=== PATIENT | male | born 1975 | race Caucasian/White ===

== ENCOUNTER 2016-08-19 18:10 | Inpatient (IN) | payer MEDICAID ==
[~2016-08-19] VITALS: Ht 165.1 cm; Wt 72.6 kg
[2016-08-19 18:19] VITALS: BP 136/86
--- NOTE | 2016-08-19 18:26 | NUR ---
Pt taken to bed 8.
--- NOTE | 2016-08-19 18:34 | NUR ---
41/M presents to ED for evaluation of left lower quadrant pain radiating to left lower back x3 hours. Pt states he has hx of kidney stones 3 years ago. Pt states "This feels like the same thing." Patient also reports N/V. No vomiting noted while in ED. Patient is AOX4, ambulates with steady gait. Pt sitting in chair at bedside. VSS.
--- NOTE | 2016-08-19 18:37 | NUR ---
Patient being evaluated by physician at bedside.
[2016-08-19] MEDS ORDERED: KETOROLAC 30 MG/ML VIAL IVP ONE (18:40)
[2016-08-19] MEDS ORDERED: NACL 0.9% 1,000 ML IV SCH (18:40)
[2016-08-19] MEDS ORDERED: NACL 0.9% 1,000 ML IV ONE ×2 (18:40→21:00)
[2016-08-19] MEDS ORDERED: fentaNYL 0.05 MG/ML VIAL IVP ONE (18:40)
--- NOTE | 2016-08-19 19:12 | NUR ---
Pt report given to Claudia. Transfer of care at this time.
--- NOTE | 2016-08-19 19:13 | NUR ---
RECEIVED REPORT FROM DAY NURSE MARCE LVN FOR CONTINUITY OF CARE
--- NOTE | 2016-08-19 19:20 | NUR ---
US BEING DONE AT BEDSIDE
--- NOTE | 2016-08-19 19:43 | NUR ---
DR. NORIEGA EVALUAITNG PATIENT AT BEDSIDE.
[2016-08-19] MEDS ORDERED: metroNIDAZOLE 500 MG/NS PREMIX 100 ML IV ONE (21:00)
[2016-08-19] MEDS ORDERED: LEVOFLOXACIN 750 MG/D5W PREMIX 150 ML IV ONE (21:00)
--- NOTE | 2016-08-19 21:30 | NUR ---
Patient will be admitted to care of . Admited to TELEMETRY. Will go to [id number]. Belongings list completed. Report to [facility].
[2016-08-19 21:45] VITALS: BP 110/67
--- NOTE | 2016-08-19 21:45 | NUR ---
PATIENT TRANSFERRED FROM ER VIA GURNEY. PATIENT IS A 41-YEAR-OLD, MALE, DIAGNOSIS: APPENDICITIS. NO RESPIRATORY DISTRESS, SOB, OR DISCOMFORT. ACCOMPANIED BY FAMILY MEMBER. INITIAL ASSESSMENT AND BODY CHECK DONE. PATIENT IS AOX4, IV ACCESS TO LEFT AC 20G, PATENT. PATIENT HAS OPEN WOUNDS TO TOP OF LEFT FOOT, OPEN TO AIR, NO DRAINAGE NOTED. PATIENT DENIES ANY PAIN AT THIS TIME. DISCUSSED PLAN OF CARE, MEDICATION REGIMENT, AND PAIN MANAGEMENT WITH PATIENT. PATIENT VERBALIZED UNDERSTANDING. PLACED PATIENT ON SAFETY PRECAUTIONS. CALL LIGHT LEFT WITHIN REACH, WILL CONTINUE TO MONITOR.
[2016-08-19] MEDS ORDERED: ONDANSETRON 4 MG/2 ML VIAL IVP PRN (21:55)
[2016-08-19] MEDS ORDERED: MORPHINE SULFATE 4 MG/ML SYR IVP PRN (21:55)
[2016-08-19] MEDS ORDERED: LORazepam 2 MG/ML VIAL IVP PRN (21:55)
[2016-08-19] MEDS: DEXT 5% /NACL 0.9% 1,000 ML IV SCH (21:55)
[2016-08-20] VITALS: BP 126/84
--- NOTE | 2016-08-20 01:22 | NUR ---
PATIENT IN BED, SLEEPING. NO RESPIRATORY DISTRESS, SOB, OR DISCOMFORT. CALL LIGHT LEFT WITHIN REACH, WILL CONTINUE TO MONITOR.
--- NOTE | 2016-08-20 03:02 | NUR ---
PATIENT ASLEEP. NO RESPIRATORY DISTRESS, SOB, OR DISCOMFORT. CALL LIGHT LEFT WITHIN REACH, WILL CONTINUE TO MONITOR.
[2016-08-20 04:00] VITALS: BP 119/69
[2016-08-20] MEDS: metroNIDAZOLE 500 MG/NS PREMIX 100 ML IV SCH ×2 (05:24→12:44)
[2016-08-20] MEDS: DEXT 5% /NACL 0.9% 1,000 ML IV SCH ×3 (05:55→18:39)
--- NOTE | 2016-08-20 06:17 | NUR ---
PATIENT SLEEPING. NO RESPIRATORY DISTRESS, SOB, OR DISCOMFORT. CALL LIGHT LEFT WITHIN REACH, WILL CONTINUE TO MONITOR.
--- NOTE | 2016-08-20 07:04 | NUR ---
REPORT GIVEN TO DAY NURSEBRANDON. PATIENT RESTING IN BED, STABLE. NO RESPIRATORY DISTRESS, SOB, OR DISCOMFORT. ALL NEEDS ATTENDED TO DURING SHIFT, CALL LIGHT LEFT WITHIN REACH.
--- NOTE | 2016-08-20 07:04 | NUR ---
RECEIVED REPORT FROM NIGHT NURSE. PT IS AAOX4, IV TO LEFT AC 20G INFUSING WELL D5NS AT 125ML/HR. PT STATES TOLERABLE DISCOMFORT TO LEFT GROIN AREA, LEFT FOOT WOUND, PT STATES ITS FROM SCRATCHING . INITIAL ASSESSMENT COMPLETED, REVIEWED PLAN OF CARE WITH PT, PT VERBALIZED UNDERSTANDING. ALL SAFETY/ FALL PRECAUTIONS MET, CALL LIGHT WITHIN REACH. WILL CONTINUE TO MONITOR.
[2016-08-20 08:00] VITALS: BP 120/70
--- NOTE | 2016-08-20 08:45 | NUR ---
PATIENT HAS BEEN SCREENED AND CATEGORIZED HIGH NUTRITION RISK. PATIENT WILL BE SEEN WITHIN 1-2 DAYS OF ADMISSION. 08/20/16-08/21/[address]
--- NOTE | 2016-08-20 09:15 | NUR ---
WOUND CARE EVALUATION NOTES: REASON FOR EVALUATION: LEFT FOOT OPEN WOUND COMPLETE SKIN ASSESSMENT DONE ON THIS 41 Y/O MALE PATIENT FROM HOME TO [facility], WITH INITIAL DIAGNOSIS OF APPENDICITIS. PAST MEDICAL HISTORY INCLUDE KIDNEY STONES. ALL ABOVE INFORMATION WAS OBTAINED FROM THE ADMISSION H&P. LABS ARE WBC 13.5, H/H 12.7/37.7, GLUCOSE 129 AND ALBUMIN 2.8. CURRENT MEDS INCLUDE LEVOFLOXACIN, METRONIDAZOLE, MORPHINE AND ATIVAN. PATIENT IS ALERT AND ORIENTED TO PERSON, PLACE, DATE AND TIME. SKIN WARM TO TOUCH WNL, TOENAILS WNL, NO EDEMA RIGHT FOOT, +1 EDEMA LEFT FOOT, AND +2 BILATERAL PEDAL PULSES. URINE AND BOWEL CONTINENT, ABLE TO AMBULATE TO THE RESTROOM CLAIMED. ABLE TO TURN SELF WITHOUT ASSISTANCE. INITIAL PLAN OF CARE AND PRESSURE PREVENTIVE MEASURES DISCUSSED, ABLE TO VERBALIZE UNDERSTANDING. INTEGUMENTARY: LEFT DORSAL FOOT - FUNGAL LIKE - RECOMMENDATIONS: -LEFT DORSAL FOOT: CLEANSE WITH NS AND GAUZE, PAT DRY, APPLY ANTIFUNGAL CLEAR OINT, COVER WITH ADAPTIC, GAUZE WRAP WITH PENNY Q DAY AND PRN WITH SOILING/DISPLACEMENT -CLEANSE BUE AND BLE WITH MILD SOAP AND WATER, PAT DRY, APPLY VIT A&D OINT BIDWC AND LEAVE OPEN TO AIR -ENCOURAGE PATIENT TO TURN AND REPOSITION SELF Q2H -ASSESS AND MONITOR SKIN CONDITION DURING POSITION CHANGE, PLEASE PAY PARTICULAR ATTENTION TO SACRALCOCCYX, ELBOWS AND HEELS -OFFLOAD BILATERAL HEELS BY PLACING PILLOWS UNDER CALVES AT ALL TIMES (ONE PILLOW EACH LEG), UNLESS OTHERWISE CONTRAINDICATED -KEEP SKIN CLEAN AND DRY AT ALL TIMES. -PODIATRY CONSULT IF OK WITH PMD -BLE ARTERIAL AND VENOUS U/S BLE IF OK WITH PMD RECOMMENDATIONS DISCUSSED WITH PRIMARY RN AND PMD WILL FOLLOW UP PATIENT Q 7 DAYS AND PRN. PLEASE CONTACT C FOR ANY CONCERNS, QUESTIONS AND CHANGES IN WOUND CONDITION.
--- NOTE | 2016-08-20 10:15 | NUR ---
PT CURRENTLY SLEEPING, NO S/S OF DISTRESS OR DISCOMFORT NOTED, FAMILY AT BEDSIDE, CALL LIGHT WITHIN REACH. WILL CONTINUE TO MONITOR.
[2016-08-20 11:44] VITALS: BP 120/70
--- NOTE | 2016-08-20 12:44 | NUR ---
DUE MEDICATIONS GIVEN, PT TOLERATED WELL PT REPORTS HEADACHE 10/10 WILL MEDICATED PER MD ORDERS, CALL LIGHT WITHIN REACH WILL CONTINUE TO MONITOR.
--- NOTE | 2016-08-20 12:46 | NUR ---
08/20/16 RD INITIAL ASSESSMENT COMPLETED PLEASE REFER TO NUTRITION ASSESSMENT UNDER CARE ACTIVITY FOR ESTIMATED NUTRITIONAL NEEDS. RD RECOMMENDATIONS: 1. CONTINUE NPO DIET MEDICALLY APPROPRIATE 2. WHEN APPROPRIATE CONSIDER ADVANCED DIET TOLERATED TO REGULAR 3. RD WILL F/U 3-5 DAYS; MODERATE RISK. VANESA GONZALEZ RD
[2016-08-20] MEDS: MORPHINE SULFATE 2 MG/ML SYR IVP PRN ×2 (12:48→21:21)
[2016-08-20] MEDS: ANTIFUNGAL CLEAR OINTMENT TP SCH (13:55)
[2016-08-20] MEDS: VITAMIN A/VITAMIN D OINT 113 GM TUBE TP SCH (13:55)
[2016-08-20] MEDS ORDERED: ANTIFUNGAL CLEAR OINTMENT TP PRN (13:55)
--- NOTE | 2016-08-20 14:40 | NUR ---
DR CARDOZO.A IN TO SEE PG, PAGED DR SHUKLA, AWAITING CALL BACK.
[2016-08-20 16:00] VITALS: BP 120/68
--- NOTE | 2016-08-20 16:10 | NUR ---
PT CURRENTLY RESTING IN BED, WOUND DRESSING COMPLETED, NO S/S OF RESPIRATORY DISTRESS NOTED, CALL LIGHT WITHIN REACH.
--- NOTE | 2016-08-20 18:30 | NUR ---
CHECKED IN ON PT, PT C/O OF NAUSEA, WILL MEDICATE PER MD ORDERS.
--- NOTE | 2016-08-20 19:10 | NUR ---
ENDORSED PLAN OF CARE, TO NIGHT NURSE, PT IN STABLE CONDITION.
--- NOTE | 2016-08-20 19:15 | NUR ---
RECEIVED PT FROM BRANDON RN PT DIVEHI SPEAKER AAOX4 AMBULATORY DENIES ANY PAIN AT THIS TIME IV ON LEFT AC INFUSING WELL RELATIVES AT BED SIDE INITIAL ASSESSMENT DONE
[2016-08-20 20:00] VITALS: BP 111/74
[2016-08-20] MEDS ORDERED: LEVOFLOXACIN 500 MG/D5W PREMIX 100 ML IV SCH (21:00)
--- NOTE | 2016-08-20 21:30 | NUR ---
DR AMOS IS HERE AND SEE THE PT AND ORDERS TO FOLLOW
[2016-08-20] MEDS ORDERED: VANCOMYCIN PER PHARMACY MC PRN (21:35)
[2016-08-20] MEDS ORDERED: PIPERACILLIN/TAZOBACTAM 3.375 GM VIAL IV ONE (23:05)
[2016-08-20] MEDS ORDERED: VANCOMYCIN 1,000 MG VIAL ONE (23:06)
[2016-08-20] MEDS ORDERED: VANCOMYCIN 1GM/DEXT 5% PREMIX 200 ML IV SCH (23:30)
--- NOTE | 2016-08-20 23:48 | NUR ---
AFTER PAIN MEDIC GIVEN PT SLEEP QUIET TO DISTRESS NOTED NOT FEVER ON TELMETRY SR
[2016-08-21] VITALS: BP 102/57
[2016-08-21] MEDS: PIPER/TAZO 3.375GM/D5W PREMIX 50 ML IV SCH ×4 (00:12→17:56)
[2016-08-21] MEDS: VITAMIN A/VITAMIN D OINT 113 GM TUBE TP SCH ×2 (01:51→15:28)
--- NOTE | 2016-08-21 01:58 | NUR ---
AFTER PAIN MEDIC GIVING PT HAS BEEN SLEEPING QUIET NOT DISTRESS NOTED, ON TELEMETRY SR
--- NOTE | 2016-08-21 03:20 | NUR ---
PT SLEEPING WELL NOT SIGNS OF PAIN REMAIN STABLE ON TELEMETRY SR
[2016-08-21 04:00] VITALS: BP 110/63
[2016-08-21] MEDS ORDERED: PIPERACILLIN/TAZOBACTAM 3.375 GM VIAL IV ONE (05:14)
[2016-08-21] MEDS: DEXT 5% /NACL 0.9% 1,000 ML IV SCH ×3 (05:56→20:26)
--- NOTE | 2016-08-21 06:52 | NUR ---
PT VOIDING WELL AMBULATES TO THE RESTROOM, DENIES ANY PAIN AT THIS TIME , IV ON LEFT AC INFUSING WELL ON TELEMETRY SR
--- NOTE | 2016-08-21 07:30 | NUR ---
REPORT RECEIVED AT BEDSIDE FROM [facility] . PATIENT IN BED, AWAKE, ALERT ,ORIENTED ( T/4) . DENIES PAIN AT THIS TIME . WITH IV FLUIDS INFUSING WELL. SKIN NON INTACT , HAS OPEN WOUND LEFT FOOT , DRESSING DRY AND AND INTACT . PATIENT CONTINENT B/B , BRP . NPO . PLAN OF CARE DISCUSSED WITH HIM , HE VERBALIZED UNDERSTANDING. WILL CONTINUE MONITORING.
[2016-08-21 08:00] VITALS: BP 111/64
--- NOTE | 2016-08-21 10:39 | NUR ---
PAGED DR. SHUKLA TO FOLLOW UP WITH THE CONSULT. AWAITING FOR CALL BACK.
--- NOTE | 2016-08-21 10:43 | NUR ---
DR. SHUKLA CALLED BACK AND MADE AWARE OF THE CONSULT. STATED HE WILL COME AND SEE PT TODAY.
[2016-08-21] MEDS: VANCOMYCIN 1GM/DEXT 5% PREMIX 200 ML IV SCH ×2 (11:32→22:55)
[2016-08-21 12:00] VITALS: BP 104/66
[2016-08-21] MEDS: MORPHINE SULFATE 2 MG/ML SYR IVP PRN (15:24)
[2016-08-21] MEDS: ANTIFUNGAL CLEAR OINTMENT TP SCH (15:27)
[2016-08-21 16:00] VITALS: BP 110/68
--- NOTE | 2016-08-21 16:45 | NUR ---
DR SHUKLA CAME TO SEE HIM , HE WILL CALL DR CARDOZO.
--- NOTE | 2016-08-21 19:20 | NUR ---
REPORT GIVEN AT BEDSIDE TO [facility] FOR CONTINUITY OF CARE . FAMILY AT BEDSIDE .
--- NOTE | 2016-08-21 19:28 | NUR ---
RECEIVED REPORT FROM DEVIN RN, AT BEDSIDE. INITIAL ASSESSMENT AND BODY CHECK DONE. PATIENT AAO X 4, ABLE TO FOLLOW COMMAND AND MAKE NEEDS KNOWN AND AMBULATORY BY SELF WITH STEADY GAIT. PATIENT CURRENTLY SITTING UP ON THE BED AND TALKING TO FAMILY. NO S/S OF DISTRESS OR SOB NOTED. STILL C/O MILD HEADACHE AT THIS TIME. DRESSING ON LEFT FOOT REMAINS CLEAN/DRY AND INTACT. DISCUSSED PLAN OF CARE, PAIN MANAGEMENT AND MEDICATION REGIMEN WITH PATIENT AND PATIENT VERBALIZED UNDERSTANDING. PLACED PATIENT ON SAFETY PRECAUTIONS AND WILL CONTINUE TO MONITOR. CALL LIGHT LEFT WITHIN REACH.
[2016-08-21 19:48] VITALS: BP 115/71
[2016-08-21] MEDS: CLOTRIMAZOLE 1% 30 GM CRM TUBE TP SCH (20:26)
--- NOTE | 2016-08-21 21:43 | NUR ---
ROUNDS MADE, SEEN PATIENT RESTED COMFORTABLY IN BED. NO S/S OF DISTRESS NOR ANY COMPLAINT MADE. ALL NEEDS ARE ATTENDED. WILL CONTINUE TO MONITOR.
[2016-08-22] VITALS: BP 121/65
[2016-08-22] MEDS: VITAMIN A/VITAMIN D OINT 113 GM TUBE TP SCH ×2 (00:28→13:18)
[2016-08-22] MEDS: PIPER/TAZO 3.375GM/D5W PREMIX 50 ML IV SCH ×5 (00:29→23:12)
--- NOTE | 2016-08-22 00:29 | NUR ---
ADMINISTERED ABX MEDICATIONS AND SKIN TX MD'S ORDERED WITH EDUCATION GIVEN. PATIENT TOLERATED WELL AND REMAINED IN STABLE CONDITION WITHOUT S/S OF DISTRESS NOTED. WILL CONTINUE TO MONITOR.
[2016-08-22 04:00] VITALS: BP 104/57
--- NOTE | 2016-08-22 04:10 | NUR ---
PATIENT IS CLINICALLY STABLE WITH UNCHANGED V/S. WILL CONTINUE TO MONITOR.
[2016-08-22] MEDS: DEXT 5% /NACL 0.9% 1,000 ML IV SCH ×3 (05:05→20:29)
--- NOTE | 2016-08-22 07:22 | NUR ---
PATIENT RESTED WELL THROUGHOUT THE SHIFT AND REMAINED IN STABLE CONDITION WITHOUT S/S OF DISTRESS NOTED. ENDORSED PLAN OF CARE, DEVIN RN, AT BEDSIDE.
--- NOTE | 2016-08-22 07:30 | NUR ---
REPORT RECEIVED AT BEDSIDE FROM [facility] . PATIENT IN BED, AWAKE,ALERT ,ORIENTED (T/4) . DENIES HEADACHE/ABDOMINAL PAIN AT THIS TIME. NO NAUSEAS. WITH IV FLUIDS INFUSING WELL. LEFT FOOT OPEN WOUND , COVERED WITH DRY AND INTACT DRESSING. PATIENT CONTINENT B/B , BRP . PLAN OF CARE DISCUSSED WITH HIM , PATIENT VERBALIZED UNDERSTANDING. WILL CONTINUE MONITORING.
[2016-08-22 08:00] VITALS: BP 100/61
[2016-08-22] MEDS ORDERED: POTASSIUM CHLORIDE 10 MEQ TABER PO SCH (08:58)
[2016-08-22] MEDS: CLOTRIMAZOLE 1% 30 GM CRM TUBE TP SCH ×2 (09:43→20:29)
--- NOTE | 2016-08-22 10:00 | NUR ---
MORNING CARE DONE BY HIMSELF . DENIES PAIN.
[2016-08-22] MEDS: VANCOMYCIN 1GM/DEXT 5% PREMIX 200 ML IV SCH ×2 (11:35→18:18)
[2016-08-22 12:00] VITALS: BP 122/82
--- NOTE | 2016-08-22 12:30 | NUR ---
PATIENT TAKING HIS LUNCH , NO NAUSEAS, DENIES PAIN.
[2016-08-22] MEDS: ANTIFUNGAL CLEAR OINTMENT TP SCH (13:17)
[2016-08-22 16:00] VITALS: BP 110/68
--- NOTE | 2016-08-22 17:30 | NUR ---
PATIENT TAKING HIS DINNER , FAMILY AT BEDSIDE. DENIES PAIN.
--- NOTE | 2016-08-22 19:25 | NUR ---
REPORT GIVEN AT BEDSIDE TO [facility] FOR CONTINUITY OF CARE.
--- NOTE | 2016-08-22 19:28 | NUR ---
RECEIVED REPORT FROM DEVIN RN, AT BEDSIDE. INITIAL ASSESSMENT AND BODY CHECK DONE. PATIENT AAO X 4, ABLE TO FOLLOW COMMAND AND MAKE NEEDS KNOWN AND AMBULATORY BY SELF WITH STEADY GAIT. PATIENT CURRENTLY SITTING UP ON THE BED AND WATCHING TV. NO S/S OF DISTRESS OR SOB NOTED. DENIED OF ANY PAIN/DISCOMFORT AT THIS TIME. DRESSING ON LEFT FOOT REMAINS CLEAN/DRY AND INTACT. DISCUSSED PLAN OF CARE, PAIN MANAGEMENT AND MEDICATION REGIMEN WITH PATIENT AND PATIENT VERBALIZED UNDERSTANDING. PLACED PATIENT ON SAFETY PRECAUTIONS AND WILL CONTINUE TO MONITOR. CALL LIGHT LEFT WITHIN REACH.
[2016-08-22 19:33] VITALS: BP 121/87
--- NOTE | 2016-08-22 21:05 | NUR ---
ROUNDS MADE, SEEN PATIENT RESTING COMFORTABLY IN BED AND USING HIS CELL PHONE. NO S/S OF DISTRESS NOR ANY COMPLAINT MADE. WILL CONTINUE TO MONITOR.
[2016-08-23] VITALS: BP 126/77
--- NOTE | 2016-08-23 00:06 | NUR ---
PATIENT REMAINED IN STABLE CONDITION WITHOUT S/S OF DISTRESS NOTED. WILL CONTINUE TO MONITOR.
[2016-08-23] MEDS: VITAMIN A/VITAMIN D OINT 113 GM TUBE TP SCH ×2 (00:28→09:38)
[2016-08-23] MEDS: VANCOMYCIN 1GM/DEXT 5% PREMIX 200 ML IV SCH (02:54)
[2016-08-23] MEDS: DEXT 5% /NACL 0.9% 1,000 ML IV SCH (02:55)
[2016-08-23 03:44] VITALS: BP 117/71
--- NOTE | 2016-08-23 03:48 | NUR ---
PATIENT IS CLINICALLY STABLE AND SLEEP WELL. NO S/S OF DISTRESS NOR ANY COMPLAINT MADE. WILL CONTINUE TO MONITOR.
[2016-08-23] MEDS: PIPER/TAZO 3.375GM/D5W PREMIX 50 ML IV SCH (05:21)
--- NOTE | 2016-08-23 07:05 | NUR ---
RECEIVED REPORT FROM TUBE WINDER RN. PT IS SLEEPING UPON ENTERING. PT IS A/O X 4. NO S/S OF RESPIRATORY DISTRESS. LAST BM ON 08/22/16. LEFT FOOT WOUND PRESENT. LAC 20G IV INTACT AND PATENT. PT IS AMBULATORY. NO S/S OF DISCOMFORT OR DISTRESS. SAFETY MEASURES IN PLACE. CALL LIGHT WITHIN REACH. WILL CONTINUE PLAN OF CARE.
--- NOTE | 2016-08-23 07:05 | NUR ---
ENDORSED PLAN OF CARE TO [facility], AT BEDSIDE. PATIENT REMAINED IN STABLE CONDITION WITHOUT S/S OF DISTRESS NOTED.
[2016-08-23 07:37] VITALS: BP 96/60
[2016-08-23] MEDS: CLOTRIMAZOLE 1% 30 GM CRM TUBE TP SCH (09:26)
[2016-08-23] MEDS: ANTIFUNGAL CLEAR OINTMENT TP SCH (09:38)
--- NOTE | 2016-08-23 10:22 | NUR ---
UPON ENTERING ROOM PT DISCONNECTED FROM IV. PT STATES HE WANTS TO LEAVE NOW. PT EDUCATED ON THE RISKS OF LEAVING AMA. PT VERBALIZED UNDERSTANDING. PT STILL STATES HE WANTS TO LEAVE BECAUSE HE "HAS TO TAKE CARE OF HIS KIDS". NO S/S OF ACUTE DISTRESS. PT DENIES PAIN. IV TAKEN OUT. TIP INTACT. DR. CARDOZO MADE AWARE OF AMA. PT WALKED OFF UNIT. PT REMAINS IN STABLE CONDITION.
== END 2016-08-23 10:22 | disposition left against medical advice (07) | DRG 720 ==
LOC: MED 18:10 → MTU 21:17
PROVIDERS: ADMIT Preventive Medicine Preventive Medicine/Occupational Environmental Medicine; ATTEND Preventive Medicine Preventive Medicine/Occupational Environmental Medicine
DX: A41.9 Sepsis, unspecified organism (principal); E87.5 Hyperkalemia; K35.80 Unspecified acute appendicitis; N20.0 Calculus of kidney; S91.302A Unspecified open wound, left foot, initial encounter; N39.0 Urinary tract infection, site not specified; R73.9 Hyperglycemia, unspecified; F17.200 Nicotine dependence, unspecified, uncomplicated